=== PATIENT | male | born 1960 | race Caucasian/White ===

== ENCOUNTER 2018-07-08 11:22 | Emergency (ER) | payer OTHER ==
[~2018-07-08] VITALS: Ht 175.3 cm; Wt 93.6 kg
[2018-07-08] MEDS ORDERED: OMEP-218 (11:29)
[2018-07-08] MEDS ORDERED: ATOR1TAB19 (11:29)
[2018-07-08] MEDS ORDERED: NS 1,000 ML IV ONE (12:15)
[2018-07-08 13:13] LABS: BASO % 0.2 % (0.0-1.0); EOS % 0.5 % (0.0-3.0); HEMATOCRIT 48.6 % (42.0-52.0); HEMOGLOBIN 16.4 g/dl (13.5-17.5); LYMPH % 2.4 % (24.0-44.0); MEAN CORPUSCULAR HEMOGLOBIN 30.2 pg (27.0-33.0); MEAN CORPUSCULAR HGB CONC 33.7 g/dl (32.0-36.5); MEAN CORPUSCULAR VOLUME 89.5 fl (80.0-96.0); MONO # 0.3 10^3/uL (0.0-0.8); NEUTROPHILS # 8.2 10^3/uL (1.8-7.7); NEUTROPHILS % 93.4 % (36.0-66.0); PLATELET COUNT, AUTOMATED 161 10^3/uL (150-450); RED BLOOD COUNT 5.43 10^6/uL (4.30-6.10); WHITE BLOOD COUNT 8.8 10^3/uL (4.0-10.0)
[2018-07-08 13:18] LABS: CALCIUM LEVEL 8.7 MG/DL (8.8-10.2); CREATININE FOR GFR 1.44 MG/DL (0.70-1.30); GLOMERULAR FILTRATION RATE 53.3 (>49); MAGNESIUM LEVEL 2.2 MG/DL (1.8-2.4); POTASSIUM SERUM 4.4 MEQ/L (3.5-5.1)
[2018-07-08 13:42] LABS: LYMPH # 0.2 10^3/uL (1.5-4.5)
[2018-07-08] MEDS ORDERED: ONDA4TAB6 PO (14:05)
[2018-07-08 14:54] VITALS: BP 130/76
--- NOTE | 2018-07-08 15:08 | ECGEPIP ---
Stationary ECG Study [facility] - ED Test Date: 2018-07-08 Pat Name: TAYLOR MOREIRA Department: Room: - Gender: M Health Education Specialist: [facility] : 1960 Requested By: MIKHAIL VENTURA Order Number: [id number] Reading MD: Sola Quiñonez Measurements Intervals [place] Rate: 69 P: 35 MD: 181 QRS: 24 QRSD: 98 T: 21 QT: 382 QTc: 410 Interpretive Statements SINUS RHYTHM NO PRIOR FOR COMPARISON Electronically Signed On 07-08-2018 15:07:54 EDT by Sola Quiñonez
== END 2018-07-08 14:56 | disposition home or self-care (01) ==
LOC: M ED 11:22
DX: R55 Syncope and collapse (principal); E86.0 Dehydration; E78.5 Hyperlipidemia, unspecified; K21.9 Gastro-esophageal reflux disease without esophagitis; Z88.0 Allergy status to penicillin; Z79.899 Other long term (current) drug therapy

== ENCOUNTER → 2023-01-20 | Outpatient (CLI) | payer OTHER ==
[~2023-01-20] MED LIST: ATOR1TAB19; OMEP-173; ONDA4TAB6 PO
[2023-01-20 11:48] LABS: BASO % 0.6 % (0.0-1.0); EOS % 0.3 % (0.0-3.0); HEMATOCRIT 47.7 % (42.0-52.0); LYMPH # 1.4 10^3/uL (1.5-5.0); LYMPH % 20.7 % (24.0-44.0); MEAN CORPUSCULAR HEMOGLOBIN 30.1 pg (27.0-33.0); MEAN CORPUSCULAR HGB CONC 33.5 g/dl (32.0-36.5); MEAN CORPUSCULAR VOLUME 89.8 fl (80.0-96.0); MONO # 0.3 10^3/uL (0.0-0.8); MONO % 4.8 % (2.0-8.0); NEUTROPHILS # 5.1 10^3/uL (1.5-8.5); NEUTROPHILS % 73.3 % (36.0-66.0); PLATELET COUNT, AUTOMATED 140 10^3/uL (150-450); RED BLOOD COUNT 5.31 10^6/uL (4.30-6.10); WHITE BLOOD COUNT 6.9 10^3/uL (4.0-10.0)
[2023-01-20 11:54] LABS: LIPASE 24 U/L (12-53)
[2023-01-20 11:56] LABS: ALKALINE PHOSPHATASE 63 U/L (46-116); ALT/SGPT 37 U/L (7.0-40); AST/SGOT 28 U/L (<34); BILIRUBIN,DIRECT 0.2 MG/DL (<0.4); BILIRUBIN,TOTAL 0.8 MG/DL (0.3-1.2); BLOOD UREA NITROGEN 15 MG/DL (9-23); CALCIUM LEVEL 9.4 MG/DL (8.3-10.6); CARBON DIOXIDE LEVEL 27 MMOL/L (20-31); CHLORIDE LEVEL 104 MMOL/L (98-107); CREATININE FOR GFR 1.25 MG/DL (0.70-1.30); GLOMERULAR FILTRATION RATE > 60.0 (>49); GLUCOSE, FASTING 97 MG/DL (74-106); POTASSIUM SERUM 4.2 MMOL/L (3.5-5.1); SODIUM LEVEL 139 MMOL/L (136-145); TOTAL PROTEIN 7.7 G/DL (5.7-8.2)
[2023-01-20 16:15] LABS: ALBUMIN 4.4 G/DL (3.2-5.2)
== END ==
LOC: M WUC 10:07
PROVIDERS: ATTEND Physician Assistant
DX: K59.00 Constipation, unspecified (principal)
CPT/HCPCS: 36415; 74019; 80048; 80076; 83690; 85025; G0103

== ENCOUNTER 2023-08-26 10:34 | Day surgery (SDC) | payer MEDICARE, OTHER ==
[~2023-08-26] VITALS: Ht 175.3 cm; Wt 94.3 kg
[2023-08-26] MEDS: NS 1,000 ML IV ONE (11:05)
[2023-08-26] MEDS ORDERED: fentaNYL 100 MCG/2 ML INJECTION As Ordered ONE (12:17)
[2023-08-26] MEDS ORDERED: propofoL 200 MG/20 ML VIAL As Ordered ONE (12:27)
[2023-08-26] MEDS ORDERED: LIDOCAINE 2% 100MG/5ML SDV (FOR ANES.) As Ordered ONE (12:28)
[2023-08-26 12:50] VITALS: TEMP 98.5
[2023-08-26 13:09] VITALS: BP 148/92; O2SAT 96
== END 2023-08-26 13:21 | disposition home or self-care (01) ==
LOC: M OPP 10:34
PROVIDERS: ATTEND Internal Medicine Gastroenterology
DX: Z12.11 Encounter for screening for malignant neoplasm of colon (principal); Z12.12 Encounter for screening for malignant neoplasm of rectum; K64.0 First degree hemorrhoids; K21.9 Gastro-esophageal reflux disease without esophagitis; E78.00 Pure hypercholesterolemia, unspecified; Z79.899 Other long term (current) drug therapy; Z88.0 Allergy status to penicillin; K44.9 Diaphragmatic hernia without obstruction or gangrene; K22.89 Other specified disease of esophagus
CPT/HCPCS: 43239; 88305; G0121; J3010

== ENCOUNTER → 2023-11-11 | Outpatient (CLI) | payer MEDICARE, OTHER ==
[~2023-11-11] MED LIST changes: +LISI10TA22; +ONDA-282 PO; -ONDA4TAB6 PO
[2023-11-11 16:00] LABS: C REACTIVE PROTEIN QUANTITATIV < 0.40 MG/DL (<1.0)
[2023-11-11 16:02] LABS: ALBUMIN 4.2 G/DL (3.2-5.2); ALKALINE PHOSPHATASE 94 U/L (46-116); ALT/SGPT 36 U/L (7.0-40); AST/SGOT 21 U/L (<34); BILIRUBIN,TOTAL 0.7 MG/DL (0.3-1.2); BLOOD UREA NITROGEN 21 MG/DL (9-23); CALCIUM LEVEL 9.3 MG/DL (8.3-10.6); CARBON DIOXIDE LEVEL 29 MMOL/L (20-31); CHLORIDE LEVEL 106 MMOL/L (98-107); CK-MB VALUE MASS 3.2 NG/ML (<3.6); CPK CREATINE PHOSPHOKINASE 204 U/L (46-171); CREATININE FOR GFR 1.27 MG/DL (0.70-1.30); GLOMERULAR FILTRATION RATE > 60.0 (>49); GLUCOSE, FASTING 89 MG/DL (74-106); IRON (FE) 114 UG/DL (65-175); MB/CK RELATIVE INDEX 1.56 (< OR =4); PERCENT SATURATION 36.2 % (19.7-50.0); POTASSIUM SERUM 3.9 MMOL/L (3.5-5.1); SODIUM LEVEL 141 MMOL/L (136-145); TOTAL IRON BINDING CAPACITY 315 UG/DL (250-425); TOTAL PROTEIN 7.3 G/DL (5.7-8.2)
[2023-11-16 12:37] LABS: LYME TOTAL ANTIBODY CIA <= 0.90 Index (<=0.90)
== END ==
LOC: M PLALAB 13:58
PROVIDERS: ATTEND Family Medicine
DX: R07.9 Chest pain, unspecified (principal); R06.00 Dyspnea, unspecified

== ENCOUNTER 2023-11-12 07:07 | Emergency (ER) | payer MEDICARE, OTHER ==
[~2023-11-12] VITALS: Ht 175.3 cm; Wt 96.6 kg
[~2023-11-12 07:07] MED LIST changes: -LISI10TA22
[2023-11-12] MEDS ORDERED: LISI10TA22 (07:13)
[2023-11-12 07:58] LABS: BASO % 0.8 % (0.0-1.0); EOS # 0.2 10^3/uL (0.0-0.5); EOS % 4.1 % (0.0-3.0); HEMATOCRIT 46.2 % (42.0-52.0); HEMOGLOBIN 15.7 g/dl (13.5-17.5); LYMPH # 1.8 10^3/uL (1.5-5.0); LYMPH % 36.5 % (24.0-44.0); MEAN CORPUSCULAR HEMOGLOBIN 30.6 pg (27.0-33.0); MEAN CORPUSCULAR VOLUME 90.1 fl (80.0-96.0); MONO # 0.4 10^3/uL (0.0-0.8); MONO % 7.5 % (2.0-8.0); NEUTROPHILS # 2.5 10^3/uL (1.5-8.5); NEUTROPHILS % 50.9 % (36.0-66.0); PLATELET COUNT, AUTOMATED 154 10^3/uL (150-450); RED BLOOD COUNT 5.13 10^6/uL (4.30-6.10); WHITE BLOOD COUNT 4.9 10^3/uL (4.0-10.0)
[2023-11-12 08:20] LABS: INR 1.09; PROTHROMBIN TIME 13.8 SECONDS (12.5-14.5)
[2023-11-12 08:22] LABS: CK-MB VALUE MASS 1.7 NG/ML (<3.6)
[2023-11-12 08:26] LABS: FREE T4 1.21 NG/DL (0.89-1.76); THYROID STIMULATING HORMONE 1.962 uIU/ML (0.55-4.78)
[2023-11-12 08:42] LABS: ALBUMIN 4.1 G/DL (3.2-5.2); BILIRUBIN,DIRECT 0.3 MG/DL (<0.4); BILIRUBIN,TOTAL 1.2 MG/DL (0.3-1.2); CALCIUM LEVEL 9.2 MG/DL (8.3-10.6); CREATININE FOR GFR 1.31 MG/DL (0.70-1.30); GLOMERULAR FILTRATION RATE 58.5 (>49); MB/CK RELATIVE INDEX 1.06 (< OR =4); POTASSIUM SERUM 4.2 MMOL/L (3.5-5.1); TOTAL PROTEIN 7.2 G/DL (5.7-8.2)
[2023-11-12] MEDS ORDERED: ISOVUE-370 76% 100ML VIAL As Ordered ONE (09:15)
[2023-11-12 09:25] LABS: CK-MB VALUE MASS 1.7 NG/ML (<3.6)
[2023-11-12 09:28] LABS: MB/CK RELATIVE INDEX 1.13 (< OR =4)
[2023-11-12] MEDS: NS 1,000 ML IV SCH (11:40)
[2023-11-12 11:47] LABS: PARTIAL THROMBOPLASTIN TIME 32.7 SECONDS (24.8-34.2)
[2023-11-12] MEDS: FAMOTIDINE 20 MG TAB PO ONE (12:07)
[2023-11-12] MEDS: ASPIRIN 81MG CHEW TABLET PO ONE (12:07)
[2023-11-12 12:09] VITALS: BP 171/83
[2023-11-12] MEDS: NITROGLYCERIN 2% OINT 1 GM *U/D* PKT TOP ONE (12:09)
[2023-11-12] MEDS: HEPARIN SOD (PORCINE) 5000UNITS/ML 1ML VIAL/SYRINGE IV ONE (12:11)
[2023-11-12] MEDS: HEPARIN DRIP 25,000 UNITS in IV 1 EA IV SCH (12:12)
[2023-11-12 12:15] VITALS: BP 153/81; O2SAT 100
[2023-11-12 12:32] VITALS: TEMP 98.2
== END 2023-11-12 12:32 | disposition short-term general hospital (02) ==
LOC: M ED 07:07
DX: I20.0 Unstable angina (principal); R00.1 Bradycardia, unspecified; I10 Essential (primary) hypertension; F10.10 Alcohol abuse, uncomplicated; Z87.891 Personal history of nicotine dependence; Z88.0 Allergy status to penicillin; Z79.899 Other long term (current) drug therapy
CPT/HCPCS: 71045; 71275; 74177; 80048; 80076; 82550; 82553; 83690; 84439; 84443; 84484; 85025; 85610; 85730; 87426; 93005; 93041; 94760; 96361; 96365; 96374; 99285; Q9967

== ENCOUNTER → 2024-02-08 | Outpatient (CLI) | payer MEDICARE, OTHER ==
[~2024-02-08] MED LIST changes: +LISI10TA22
[2024-02-08 07:45] LABS: CHOLESTEROL RISK RATIO 2.38 (<5); LDL CHOLESTEROL 40.4 MG/DL (<100)
== END ==
LOC: M LAB 06:32
PROVIDERS: ATTEND Internal Medicine Cardiovascular Disease
DX: E78.00 Pure hypercholesterolemia, unspecified (principal)

== ENCOUNTER 2025-01-14 08:14 | Observation (INO) | payer MEDICARE, OTHER ==
[~2025-01-14] VITALS: Ht 175.3 cm; Wt 94.5 kg
[2025-01-14] MEDS ORDERED: NITR0.4S14 PO (08:25)
[2025-01-14] MEDS ORDERED: METO1TAB32 PO (08:25)
[2025-01-14] MEDS ORDERED: OMEP40CA5 PO (08:25)
[2025-01-14] MEDS ORDERED: ASPI-226 PO (08:25)
[2025-01-14] MEDS ORDERED: PRAS10TA2 PO (08:25)
[2025-01-14] MEDS ORDERED: EZET10TA57 PO (08:25)
[2025-01-14] MEDS ORDERED: ATOR40TA75 (08:25)
[2025-01-14 09:10] LABS: BASO # 0.1 10^3/uL (0.0-0.2); BASO % 0.9 % (0.0-1.0); EOS # 0.2 10^3/uL (0.0-0.5); EOS % 2.9 % (0.0-3.0); LYMPH # 1.6 10^3/uL (1.5-5.0); LYMPH % 26.9 % (24.0-44.0); MONO # 0.5 10^3/uL (0.0-0.8); MONO % 8.9 % (2.0-8.0); NEUTROPHILS # 3.5 10^3/uL (1.5-8.5); NEUTROPHILS % 60.2 % (36.0-66.0); PLATELET COUNT, AUTOMATED 143 10^3/uL (150-450)
[2025-01-14 09:36] LABS: ALT/SGPT 84.0 U/L (7.0-40); AST/SGOT 40.0 U/L (<34); CALCIUM LEVEL 9.1 MG/DL (8.3-10.6); CARBON DIOXIDE LEVEL 29.0 MMOL/L (20-31); CHLORIDE LEVEL 105.0 MMOL/L (98-107); CREATININE FOR GFR 1.24 MG/DL (0.70-1.30); GLOMERULAR FILTRATION RATE 64.1 (>49); MAGNESIUM LEVEL 2.0 MG/DL (1.8-2.4); POTASSIUM SERUM 4.1 MMOL/L (3.5-5.1); SODIUM LEVEL 143.0 MMOL/L (136-145)
[2025-01-14 09:39] LABS: FREE T4 1.25 NG/DL (0.89-1.76)
[2025-01-14] MEDS ORDERED: **NOTE PATIENT COMMENT** MISC XX SCH ×2 (15:20→16:15)
[2025-01-14] MEDS ORDERED: ATOR80TA59 PO (15:43)
[2025-01-14] MEDS ORDERED: HOME MED LIST COMPLETE! XX SCH (15:45)
[2025-01-14 17:07] VITALS: BP 133/79; TEMP 97.9; O2SAT 96
[2025-01-14 19:42] VITALS: BP 132/79; TEMP 97.5; O2SAT 98
[2025-01-14] MEDS: ATORVASTATIN 20 MG TAB PO SCH (20:05)
[2025-01-14] MEDS: METOPROLOL SUCC. 25 MG *XL* TAB PO SCH (20:07)
[2025-01-14 23:38] VITALS: BP 100/58; TEMP 97.6; O2SAT 96
[2025-01-15] VITALS (9 sets, daily range): BP systolic 102–132; BP diastolic 56–78; PULSE 57; TEMP 97–97.5; O2SAT 97–100
[2025-01-15 05:40] LABS: PLATELET COUNT, AUTOMATED 153 10^3/uL (150-450)
[2025-01-15 06:11] LABS: CK-MB VALUE MASS 1.5 NG/ML (<3.6)
[2025-01-15 06:12] LABS: CPK CREATINE PHOSPHOKINASE 81.0 U/L (46-171); MB/CK RELATIVE INDEX 1.85 (< OR =4)
[2025-01-15 06:13] LABS: CALCIUM LEVEL 9.2 MG/DL (8.3-10.6); CARBON DIOXIDE LEVEL 29.0 MMOL/L (20-31); CHLORIDE LEVEL 105.0 MMOL/L (98-107); CREATININE FOR GFR 1.22 MG/DL (0.70-1.30); GLOMERULAR FILTRATION RATE 65.4 (>49); MAGNESIUM LEVEL 2.1 MG/DL (1.8-2.4); POTASSIUM SERUM 4.2 MMOL/L (3.5-5.1); SODIUM LEVEL 143.0 MMOL/L (136-145)
[2025-01-15] MEDS: OMEPRAZOLE 20MG CAP PO SCH (07:54)
[2025-01-15] MEDS: ASPIRIN 81 MG ENTERIC TABLET PO SCH (07:54)
[2025-01-15] MEDS: ONDANSETRON 4MG TAB PO ONE (07:54)
[2025-01-15] MEDS: EZETIMIBE 10 MG TABLET PO SCH (07:54)
[2025-01-15] MEDS: NITROGLYCERIN 0.4 MG SUBL TABLET SL STA (08:18)
[2025-01-15 14:25] LABS: CK-MB VALUE MASS 1.4 NG/ML (<3.6)
[2025-01-15 14:29] LABS: CPK CREATINE PHOSPHOKINASE 83.0 U/L (46-171); MB/CK RELATIVE INDEX 1.68 (< OR =4)
[2025-01-15 23:26] LABS: CK-MB VALUE MASS 1.5 NG/ML (<3.6)
[2025-01-15 23:27] LABS: CPK CREATINE PHOSPHOKINASE 70.0 U/L (46-171); MB/CK RELATIVE INDEX 2.14 (< OR =4)
[2025-01-16 04:09] VITALS: BP 116/69; TEMP 97.3; O2SAT 97
[2025-01-16 06:23] LABS: PLATELET COUNT, AUTOMATED 148 10^3/uL (150-450)
[2025-01-16 06:51] LABS: CPK CREATINE PHOSPHOKINASE 75.0 U/L (46-171)
[2025-01-16 06:52] LABS: CALCIUM LEVEL 9.0 MG/DL (8.3-10.6); CARBON DIOXIDE LEVEL 28.0 MMOL/L (20-31); CHLORIDE LEVEL 105.0 MMOL/L (98-107); CK-MB VALUE MASS 1.4 NG/ML (<3.6); CREATININE FOR GFR 1.13 MG/DL (0.70-1.30); GLOMERULAR FILTRATION RATE 71.7 (>49); MAGNESIUM LEVEL 2.0 MG/DL (1.8-2.4); MB/CK RELATIVE INDEX 1.86 (< OR =4); POTASSIUM SERUM 3.8 MMOL/L (3.5-5.1); SODIUM LEVEL 142.0 MMOL/L (136-145)
[2025-01-16 07:58] VITALS: BP 131/79; TEMP 97.1; O2SAT 96
[2025-01-16 12:10] VITALS: BP 110/70; TEMP 97.1; O2SAT 98
== END 2025-01-16 14:33 | disposition home or self-care (01) ==
LOC: M ED 08:14 → M ED INP 15:19 → M PCU 17:00
PROVIDERS: ADMIT Family Medicine; ATTEND Family Medicine
DX: R00.2 Palpitations (principal); I25.10 Atherosclerotic heart disease of native coronary artery without angina pectoris; Z95.5 Presence of coronary angioplasty implant and graft; I11.9 Hypertensive heart disease without heart failure; E78.5 Hyperlipidemia, unspecified; K22.70 Barrett's esophagus without dysplasia; R07.89 Other chest pain; R11.0 Nausea; Z79.82 Long term (current) use of aspirin; Z79.899 Other long term (current) drug therapy; Z88.0 Allergy status to penicillin
CPT/HCPCS: 36415; 71045; 76705; 80048; 80076; 82550; 82553; 83690; 83735; 84439; 84443; 84484; 85025; 85027; 93005; 93041; 93306; 94760; 99285; G0378